=== PATIENT | male | born 1985 ===

== ENCOUNTER 2017-05-15 00:11 | Emergency (ER) | payer MEDICARE, MEDICAID ==
[2017-05-15 00:12] VITALS: BMI 27.0
[2017-05-15 00:22] VITALS: RESP 20
[2017-05-15 02:12] LABS: URINE BILIRUBIN NEGATIVE (NEGATIVE); URINE BLOOD NEGATIVE (NEGATIVE); URINE CLARITY Clear (Clear); URINE COLOR Yellow (YELLOW); URINE GLUCOSE (UA) NORMAL (Normal); URINE LEUKOCYTE ESTERASE NEG Leu/uL (Negative); URINE NITRATE NEGATIVE (NEGATIVE); URINE PROTEIN NEGATIVE (NEGATIVE); URINE UROBILINOGEN NORMAL mg/dL (0.2-1.0)
--- NOTE | 2017-05-15 03:01 | C.PDOC ---
History Of Present Illness 31 year old male who presents to the ER with a complaint of fever and generalized weakness. Patient has a Hx of sickle cell anemia but states he is not in any crisis. Denies chest pain, vomiting, abdominal pain, URI symptoms, or urinary symptoms. Time Seen by Provider: 05/15/17 01:11 Chief Complaint (Nursing): Flu-like Symptoms History Per: Patient History/Exam Limitations: no limitations Onset/Duration Of Symptoms: Hrs Current Symptoms Are (Timing): Still Present Sick Contacts (Context): None Associated Symptoms: Fever, Other (Weakness) Ear Symptoms: Bilateral: None Recent travel outside of the [place]: No Past Medical History Reviewed: Historical Data, Nursing Documentation, Vital Signs Vital Signs: Last Vital Signs Temp 98.8 F 05/15/17 03:05 Pulse 88 05/15/17 03:05 Resp 20 05/15/17 03:05 BP 99/66 L 05/15/17 03:05 Pulse Ox 96 05/15/17 03:05 - Medical History PMH: Sickle Cell Disease Surgical History: Cholecystectomy Family History: States: Unknown Family Hx - Social History Hx Alcohol Use: No Hx Substance Use: No - Immunization History Hx Tetanus Toxoid Vaccination: No Hx Influenza Vaccination: Yes Hx Pneumococcal Vaccination: No Review Of Systems Constitutional: Positive for: Fever, Weakness Cardiovascular: Negative for: Chest Pain, Palpitations Respiratory: Negative for: Cough, Shortness of Breath Gastrointestinal: Negative for: Nausea, Vomiting Genitourinary: Negative for: Dysuria, Hematuria Physical Exam - Physical Exam Appears: Non-toxic, No Acute Distress Skin: Normal Color, Warm, Dry Head: Atraumatic, Normacephalic Eye(s): bilateral: Normal Inspection, EOMI Ear(s): Bilateral: Normal Nose: Normal, No Flaring, No Discharge Oral Mucosa: Moist Throat: Normal, No Erythema, No Exudate Neck: Normal, Supple Chest: Symmetrical, No Tenderness Cardiovascular: Rhythm Regular, No Murmur Respiratory: Normal Breath Sounds, No Rales, No Rhonchi, No Wheezing Gastrointestinal/Abdominal: Soft, No Tenderness Neurological/Psych: Oriented x3, Normal Speech, Normal Cognition ED Course And Treatment O2 Sat by Pulse Oximetry: 94 (Room air) Pulse Ox Interpretation: Normal - Radiology CXR: Interpreted by Me, Viewed By Me CXR Interpretation: Yes: No Acute Disease Progress Note: CXR ordered. Patient is resting comfortably, tolerating PO, and is afebrile at this time. Clinical signs and symptoms are not suggestive of sepsis, meningitis, UTI, pneumonia, intra-abdominal pathology, or cellulitis. Patient will be discharge home, and instructed to follow up with his physician in 1-2 days without fail. Patient was instructed to return for any worsening symptoms, persistent fever, neck pain, rash, abdominal pain, or vomiting. Disposition Counseled Patient/Family Regarding: Diagnosis - Disposition Referrals: Sourav Bautista MD, PhD [Staff Provider] - Disposition: HOME/ ROUTINE Disposition Time: 02:58 Condition: STABLE Additional Instructions: Please increase PO fluids Tylenol and motrin for fever Return to ER if worse Forms: [facility] (Angolan), General Discharge Instructions - Clinical Impression Clinical Impression: Viral illness - Scribe Statement The provider has reviewed the documentation as recorded by the Scribe Brian Marie All medical record entries made by the Scribe were at my direction and personally dictated by me. I have reviewed the chart and agree that the record accurately reflects my personal performance of the history, physical exam, medical decision making, and the department course for this patient. I have also personally directed, reviewed, and agree with the discharge instructions and disposition.
[2017-05-15 03:06] VITALS: BP 99/66; PULSE 88; TEMP 98.8
[2017-05-15 04:51] VITALS: O2SAT 94
--- NOTE | 2017-05-15 07:50 | RAD ---
HISTORY: fever COMPARISON: 05/31/2015 TECHNIQUE: Chest PA and lateral FINDINGS: LUNGS: Patchy increased markings in the right hilar infrahilar region as well as to a lesser extent left lung base which may represent mild atelectasis and or infiltrate. Clinical correlation. Diffuse increased interstitial lung markings. Mild nodularity at the right costophrenic angle. PLEURA: No significant pleural effusion identified. No pneumothorax apparent. CARDIOVASCULAR: Normal. OSSEOUS STRUCTURES: No significant abnormalities. VISUALIZED UPPER ABDOMEN: Normal. OTHER FINDINGS: None. IMPRESSION: Patchy increased markings in the right hilar infrahilar region as well as to a lesser extent left lung base which may represent mild atelectasis and or infiltrate. Clinical correlation. Diffuse increased interstitial lung markings. Mild nodularity at the right costophrenic angle.
== END 2017-05-15 03:06 | disposition home or self-care (01) ==
LOC: C.ER 00:11
DX: B34.9 Viral infection, unspecified (principal)

== ENCOUNTER 2017-05-20 01:14 | Emergency (ER) | payer MEDICARE, MEDICAID ==
[2017-05-20 01:14] VITALS: BMI 27.0
[2017-05-20 01:31] VITALS: O2SAT 96
[2017-05-20] MEDS ORDERED: Sodium Chloride 0.9% 1,000 ML IV ONE (02:00)
[2017-05-20 02:21] VITALS: BP 115/76; PULSE 98; RESP 20; TEMP 98.2
--- NOTE | 2017-05-20 05:03 | C.PDOC ---
History Of Present Illness 31 year old male who presents to the ER with a complaint of having a sickle cell crisis. Patient is complaining of generalized body pain; denies SOB, abdominal pain, vomiting, or diarrhea. Time Seen by Provider: 05/20/17 01:55 Chief Complaint (Nursing): Pain, Chronic History Per: Patient History/Exam Limitations: no limitations Onset/Duration Of Symptoms: Hrs Recent travel outside of the [place]: No Past Medical History Reviewed: Historical Data, Nursing Documentation, Vital Signs Vital Signs: Last Vital Signs Temp 98.2 F 05/20/17 02:00 Pulse 98 H 05/20/17 02:00 Resp 20 05/20/17 02:00 BP 115/76 05/20/17 02:00 Pulse Ox 96 05/20/17 05:11 - Medical History PMH: Sickle Cell Disease Surgical History: Cholecystectomy Family History: States: Unknown Family Hx - Social History Hx Alcohol Use: No Hx Substance Use: No - Immunization History Hx Tetanus Toxoid Vaccination: No Hx Influenza Vaccination: Yes Hx Pneumococcal Vaccination: No Review Of Systems Cardiovascular: Negative for: Chest Pain Respiratory: Negative for: Shortness of Breath Gastrointestinal: Negative for: Vomiting, Abdominal Pain, Diarrhea Musculoskeletal: Positive for: Other (Generalized body aches) Physical Exam - Physical Exam Appears: Non-toxic Skin: Normal Color, Warm, Dry Head: Atraumatic, Normacephalic Oral Mucosa: Moist Neck: Normal, Supple Chest: Symmetrical, No Tenderness Cardiovascular: Rhythm Regular, No Murmur Respiratory: Normal Breath Sounds, No Rales, No Rhonchi, No Wheezing Gastrointestinal/Abdominal: Soft, No Tenderness Extremity: Normal ROM (x4), No Tenderness Neurological/Psych: Oriented x3, Normal Speech, Normal Cognition ED Course And Treatment O2 Sat by Pulse Oximetry: 96 (Room air) Pulse Ox Interpretation: Normal Progress Note: Blood work and IV fluids ordered. Patient instructed that sickle cell PO protocol was going to be placed in effect; however, patient refused and kept insisting to have IV dialuadid. Patient called mother to pick him up from hospital, we strongly advised patient to not leave prematurely and educated him on the possible risks of leaving prematurely; however, he refused to stay and left AMA. Pt refused to sign AMA form Against Medical Advice - AMA Patient Left Against Medical Advice: The patient declines admission to the hospital and wishes to leave the Emergency Department. This action is against my medical advice. This decision was made with informed refusal. The patient was told that admission to the hospital is necessary. Explanation of the reasons why were discussed. The risks of leaving were explained to the patient and include, but are not limited to, worsening of known or currently unknown conditions, permanent disability and from undiagnosed or untreated conditions. The patient has the capacity to make this informed decision and understands my explanation of the current medical problem and risks of leaving. The patient voluntarily accepts these risks and signed an AMA form documenting our conversation. The patient was given the opportunity to ask questions and reconsider. The patient was encouraged to return to the Emergency Department at any time for further care. Disposition - Disposition Disposition Time: 04:00 Condition: GUARDED Forms: [facility] (Kyrgyz) - Clinical Impression Clinical Impression: Sickle cell disease - Scribe Statement The provider has reviewed the documentation as recorded by the Scribe Brian Marie All medical record entries made by the Oscaribbi were at my direction and personally dictated by me. I have reviewed the chart and agree that the record accurately reflects my personal performance of the history, physical exam, medical decision making, and the department course for this patient. I have also personally directed, reviewed, and agree with the discharge instructions and disposition.
== END 2017-05-20 02:00 | disposition left against medical advice (07) ==
LOC: C.ER 01:14
DX: D57.1 Sickle-cell disease without crisis (principal)